=== PATIENT | female | born 1980 | race African-American/Black ===

== ENCOUNTER 2017-05-26 11:18 | Inpatient (IN) | payer OTHER ==
[~2017-05-26] VITALS: Ht 167.6 cm; Wt 153.4 kg
[2017-05-26 12:13] LABS: BASOPHIL % 0.4 % (0-2)
[2017-05-26 12:14] LABS: PLATELET COUNT 92 x10^3mcL (130-400)
[2017-05-26 12:34] LABS: CARBON DIOXIDE 30.2 mmol/L (21-32); CHLORIDE SERUM 105 mmol/L (98-107); CREATININE SERUM 0.8 mg/dL (0.6-1.0); GFR1 > 60 mL/min; GLUCOSE SERUM 101 mg/dL (74-106); POTASSIUM SERUM 3.4 mmol/L (3.5-5.1); SODIUM SERUM 140 mmol/L (136-145)
[2017-05-26 12:39] LABS: ALBUMIN 3.5 g/dL (3.4-5.0); ALKALINE PHOSPHATASE 48 U/L (46-116); ALT/SGPT 51 U/L (14-59); AST/SGOT 49 U/L (15-37); BILIRUBIN TOTAL 0.39 mg/dL (0.20-1.00); TOTAL PROTEIN, SERUM 7.5 g/dL (6.4-8.2)
[2017-05-26 14:38] VITALS: BP 155/107
[2017-05-26 17:23] VITALS: BP 149/86
[2017-05-26 21:12] VITALS: BP 149/93
[2017-05-27 05:16] VITALS: BP 129/87
[2017-05-27 06:14] LABS: CALCIUM 8.4 mg/dL (8.5-10.1); CARBON DIOXIDE 28.9 mmol/L (21-32); CHLORIDE SERUM 105 mmol/L (98-107); CREATININE SERUM 0.7 mg/dL (0.6-1.0); GFR1 > 60 mL/min; GLUCOSE SERUM 94 mg/dL (74-106); POTASSIUM SERUM 3.6 mmol/L (3.5-5.1); SODIUM SERUM 139 mmol/L (136-145)
[2017-05-27 06:21] LABS: BASOPHIL % 0.6 % (0-2)
[2017-05-27 06:37] LABS: PLATELET COUNT 100 x10^3mcL (130-400); RED CELL DISTRIBUTION WIDTH 15.2 % (11.5-14.5)
[2017-05-27 09:42] VITALS: BP 138/85
[2017-05-27 14:20] VITALS: BP 154/101
[2017-05-27 14:43] VITALS: BP 154/101
== END 2017-05-27 16:00 | disposition home or self-care (01) | DRG 203 ==
LOC: ED 11:18 → DU 13:50
PROVIDERS: Emergency Medicine; ADMIT Internal Medicine Pulmonary Disease
DX: R07.89 Other chest pain (principal); Z86.711 Personal history of pulmonary embolism
CPT/HCPCS: 83880; 85378; J1650; J7030; Q0092; Q9967